=== PATIENT | female | born 1985 | race Caucasian/White ===

== ENCOUNTER → 2017-11-26 | Outpatient (CLI) | payer BC ==
--- NOTE | 2017-11-26 08:10 | US ---
EXAMINATION TYPE: US abdomen limited DATE OF EXAM: 11/26/2017 COMPARISON: NONE CLINICAL HISTORY: 32-year-old female R14.0Abdominal distension (gaseous) R10.11. RUQ pain, feeling f ull TECHNIQUE: Multiple sonographic images of the right upper quadrant are obtained. FINDINGS: EXAM MEASUREMENTS: Liver Length: 15.5 cm Gallbladder Wall: 0.2 cm CBD: 0.5 cm Right Kidney: 11.0 x 4.7 x 4.8 cm Pancreas: Most of the pancreas is seen and appears within normal limits. Liver: wnl Gallbladder: wnl Evidence for sonographic Sparrwo's sign: No CBD: wnl Right Kidney: No hydronephrosis. IMPRESSION: No specific sonographic abnormality of the right upper quadrant.
== END | disposition home or self-care (01) ==
LOC: RADUSWWP 06:59 → MERGE 07:00
PROVIDERS: ATTEND Family Medicine
DX: R10.11 Right upper quadrant pain (principal); R14.0 Abdominal distension (gaseous)
CPT/HCPCS: 76705

== ENCOUNTER → 2017-12-03 | Outpatient (CLI) | payer BC ==
--- NOTE | 2017-12-03 11:43 | FL ---
EXAMINATION TYPE: FL UGI air w esophagus DATE OF EXAM: 12/03/2017 COMPARISON: Abdominal ultrasound dated 11/26/2017 HISTORY: Epigastric pain and early satiety for 2 weeks. TECHNIQUE: A double contrast UGI study is performed. 2 minutes and 23 seconds of fluoroscopy was uti lized with 64 fluoroscopic images saved. FINDINGS: [employer] fluoroscopic image of the abdomen shows no gross abnormality. The esophagus shows normal motility and emptying into the stomach. No evidence of hiatal hernia or s tricture noted. The stomach shows normal distensibility and peristalsis. There are mildly thickened gastric rugal fol ds most commonly related to gastritis. No evidence of any mass or ulcer disease. No significant jackie roesophageal reflux was seen during real time performance of this study. The duodenal bulb, sweep, and proximal small bowel loops are unremarkable. IMPRESSION: Mildly thickened gastric rugal folds most pronounced of the greater curvature most common ly related to gastritis. No focal ulceration is seen. No hiatal hernia noted.
== END | disposition home or self-care (01) ==
LOC: RADFLWHC 09:52
PROVIDERS: ATTEND Family Medicine
DX: K31.89 Other diseases of stomach and duodenum (principal)
CPT/HCPCS: 74246